=== PATIENT | male | born 1975 | race Caucasian/White ===

== ENCOUNTER 2023-04-19 13:10 | Emergency (ER) | payer OTHER ==
[~2023-04-19] VITALS: Ht 175.3 cm; Wt 100.8 kg
[2023-04-19 13:25] VITALS: BP 144/104; PULSE 91; RESP 20; TEMP 97.6; O2SAT 91
[2023-04-19] MEDS ORDERED: IBUPROFEN 800 MG TAB PO ONE (13:45)
[2023-04-19 15:11] VITALS: BP 136/102; PULSE 89; RESP 20; TEMP 97.8; O2SAT 95
--- NOTE | 2023-04-19 15:11 | NUR ---
Patient discharged with v/s stable. Written and verbal after care instructions given and explained. Patient alert, oriented and verbalized understanding of instructions. Ambulatory with steady gait. All questions addressed prior to discharge. ID band removed. Patient advised to follow up with PMD. Rx of DASH DIET given. Patient educated on indication of medication including possible reaction and side effects. Opportunity to ask questions provided and answered.
== END 2023-04-19 15:11 | disposition home or self-care (01) ==
LOC: MED 13:10
DX: S69.91XA Unspecified injury of right wrist, hand and finger(s), initial encounter (principal); M20.011 Mallet finger of right finger(s); R03.0 Elevated blood-pressure reading, without diagnosis of hypertension; Z88.0 Allergy status to penicillin; W23.0XXA Caught, crushed, jammed, or pinched between moving objects, initial encounter; Y93.89 Activity, other specified; Y92.89 Other specified places as the place of occurrence of the external cause; Y99.8 Other external cause status
CPT/HCPCS: 73140; 99283

== ENCOUNTER 2023-04-23 12:43 | Emergency (ER) | payer OTHER ==
[~2023-04-23] VITALS: Ht 172.7 cm; Wt 77.1 kg
[2023-04-23 13:15] VITALS: BP 170/115; PULSE 79; RESP 17; TEMP 97.4; O2SAT 98
== END 2023-04-23 14:14 | disposition home or self-care (01) ==
LOC: MED 12:43
DX: M20.011 Mallet finger of right finger(s) (principal); Z79.899 Other long term (current) drug therapy; Z88.1 Allergy status to other antibiotic agents
CPT/HCPCS: 99283